=== PATIENT | male | born 1960 | race Caucasian/White ===

== ENCOUNTER 2017-11-15 23:26 | Emergency (ER) | payer OTHER ==
[2017-11-15] MEDS ORDERED: Tetracaine HCl/PF 0.5% 4 ML Bottle EYEBOTH ONE (23:46)
[2017-11-15] MEDS ORDERED: Fluorescein 1 MG Ophth Strip EYEBOTH ONE (23:46)
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
[2017-11-16] MEDS ORDERED: Hydrocortisone/Neomycin/Polymyxin B Ophth Susp 7.5 ML Bottle ONE (00:17)
== END 2017-11-16 00:20 | disposition home or self-care (01) ==
LOC: VM.ED 23:26
DX: T15.01XA Foreign body in cornea, right eye, initial encounter (principal); F17.210 Nicotine dependence, cigarettes, uncomplicated
CPT/HCPCS: 65205; 99283; A9270